=== PATIENT | female | born 1985 | race Caucasian/White ===

== ENCOUNTER 2017-05-01 19:34 | Emergency (ER) | payer SELFPAY ==
[~2017-05-01] VITALS: Ht 149.9 cm; Wt 54.4 kg
--- NOTE | 2017-05-01 19:55 | NUR ---
PT AMBULATORY TO ER BED 10 C/O EPIGASTRIC PAIN W/ NAUSEA AND VOMITING BLOOD TINGED. PT APPEARS ANXIOUS STAFF RADIATION THERAPIST AND TOOK ATIVAN BUT STATES MADE HER FEEL MUCH WORST. GOWNED AND PLACED ON MONITOR. VSS. AWAITING MD MARIE.
--- NOTE | 2017-05-01 20:12 | NUR ---
DR ANDINO AT BEDSIDE FOR EVAL.
--- NOTE | 2017-05-01 20:18 | NUR ---
IV LINE STARTED BLOOD DRAWN AND SEN TO LAB.
[2017-05-01] MEDS ORDERED: ONDANSETRON HCL/PF 4 MG/2 ML VIAL ONE (20:20)
[2017-05-01] MEDS ORDERED: IV NS 0.9% 1,000 ML ONE (20:20)
[2017-05-01] MEDS ORDERED: PANTOPRAZOLE 40 MG VIAL ONE (20:20)
[2017-05-01] MEDS ORDERED: IV SET PRIMARY 1 EA INFUS.SET MC ONE (20:20)
[2017-05-01 20:25] LABS: BASOPHILS % (AUTO) 0.3 % (0.0-2.0); EOSINOPHILS # (AUTO) 0.2 /CMM (0.0-0.7); EOSINOPHILS % (AUTO) 3.1 % (0.0-6.0); HEMATOCRIT 43 % (33-45); HEMOGLOBIN 13.9 g/dL (11.5-14.8); LYMPHOCYTES # (AUTO) 1.8 /CMM (0.8-4.8); LYMPHOCYTES % (AUTO) 23.5 % (20.0-44.0); MEAN CORPUSCULAR HEMOGLOBIN 30 PG (26.0-33.0); MEAN CORPUSCULAR HGB CONC 33 g/dl (31.0-36.0); MEAN CORPUSCULAR VOLUME 92 fL (82-100); MONOCYTES # (AUTO) 0.7 /CMM (0.1-1.30); MONOCYTES % (AUTO) 9.5 % (2.0-12.0); NEUTROPHILS # (AUTO) 4.8 /CMM (1.8-8.9); NEUTROPHILS % (AUTO) 63.6 % (43.0-81.0); PLATELET COUNT (AUTO) 289 /CMM (150-450); RDW COEFFICIENT OF VARIATION 11.9 (11.5-15.0); RED BLOOD CELL COUNT(AUTO) 4.64 MIL/uL (4.0-5.2); WHITE BLOOD COUNT (AUTO) 7.5 K/uL (4.3-11.0)
[2017-05-01 20:28] LABS: APPEARANCE,URINE Clear (CLEAR); BILIRUBIN,URINE SMALL (NEGATIVE); BLOOD, URINE Negative Ery/uL (NEGATIVE); COLOR,URINE Yellow (YELLOW); KETONES,URINE 15 (NEGATIVE); LEUKOCYTE ESTERASE ,URINE Negative (NEGATIVE); NITRITE, URINE Negative (NEGATIVE); PROTEIN,URINE >=300 mg/dl (NEGATIVE); UGLUCOSE Negative (NEGATIVE)
[2017-05-01 20:30] LABS: PREGNANCY TEST URINE QUAL NEGATIVE (NEGATIVE)
[2017-05-01] MEDS ORDERED: ONDANSETRON HCL/PF 4 MG/2 ML VIAL IVP ONE (20:30)
[2017-05-01] MEDS ORDERED: IV NS 0.9% 1,000 ML BAG IV ONE (20:30)
[2017-05-01] MEDS ORDERED: PANTOPRAZOLE 40 MG VIAL IV ONE (20:30)
[2017-05-01 20:31] LABS: PH,URINE >8.5 (5.0-8.0)
[2017-05-01 20:35] LABS: CREATININE 0.7 mg/dL (0.6-1.3); POTASSIUM 3.3 mmol/L (3.5-5.1)
[2017-05-01 20:38] LABS: RBC,URINE 0-2 /HPF (0-2); WBC,URINE 0-2 /HPF (0-3)
[2017-05-01 20:39] LABS: BACTERIA,URINE 1+ /HPF (None Seen); SQUAMOUS EPITHELIAL CELL,UR Few /HPF (None Seen)
[2017-05-01 20:39] LABS: INR 0.97 (0.87-1.13); PROTHROMBIN TIME 10.1 SECS (9.5-12.7)
[2017-05-01 20:41] LABS: ALBUMIN 4.2 g/dL (3.4-5.0); BILIRUBIN,DIRECT 0.1 mg/dL (0.0-0.2); BILIRUBIN,TOTAL 0.6 mg/dL (0.2-1.0); TOTAL PROTEIN, SERUM 8.1 g/dL (6.4-8.2)
--- NOTE | 2017-05-01 22:04 | NUR ---
Patient discharged to home in stable condition. Written and verbal after care instructions given. Patient verbalizes understanding of instruction.IV removed. Catheter intact and site benign. Pressure and 4x4 applied to site. No bleeding noted.
[2017-05-01 22:05] VITALS: BP 125/66
== END 2017-05-01 22:05 | disposition home or self-care (01) ==
LOC: ER 19:36
DX: K29.70 Gastritis, unspecified, without bleeding (principal); F41.0 Panic disorder [episodic paroxysmal anxiety]
CPT/HCPCS: 36415; 80048; 80076; 81001; 83690; 84703; 85025; 85730; 96374; 96375; 99284; A4606; C9113; J2405; J7030; Z7610; 81000-TC

== ENCOUNTER 2018-11-12 13:40 | Emergency (ER) | END 2018-11-12 15:42 | disposition home or self-care (01) | DX: J32.9 Chronic sinusitis, unspecified (principal); R05 Cough; K21.9 Gastro-esophageal reflux disease without esophagitis ==

== ENCOUNTER 2021-08-16 00:13 | Emergency (ER) | payer MEDICAID, OTHER ==
[~2021-08-16] VITALS: Ht 152.4 cm; Wt 69.9 kg
[2021-08-16] MEDS ORDERED: IV NS 0.9% 1,000 ML BAG IV ONE (00:30)
--- NOTE | 2021-08-16 00:32 | NUR ---
GRAHAM [phone] CALL FOR INFORMATION ASSURANCE ANALYST
--- NOTE | 2021-08-16 00:40 | NUR ---
PT BIBRA 77 C/O ETOH. PT NOT AROUSABLE. UNRESPONSSIVE TO STIMULI. UNLABORED BREATHING.
--- NOTE | 2021-08-16 01:00 | NUR ---
URINE COLLECTED AND SENT TO LAB
--- NOTE | 2021-08-16 01:02 | NUR ---
LEAD PASTOR @ BEDSIDE
[2021-08-16 01:08] LABS: BASOPHILS % (AUTO) 0.2 % (0.0-2.0); HEMATOCRIT 40 % (33-45); HEMOGLOBIN 12.9 g/dL (11.5-14.8); LYMPHOCYTES # (AUTO) 2.4 K/uL (0.8-4.8); LYMPHOCYTES % (AUTO) 37.1 % (20.0-44.0); MEAN CORPUSCULAR HGB CONC 32 g/dl (31.0-36.0); MEAN CORPUSCULAR VOLUME 98 fL (82-100); MONOCYTES # (AUTO) 0.7 K/uL (0.1-1.30); MONOCYTES % (AUTO) 11.4 % (2.0-12.0); NEUTROPHILS # (AUTO) 3.1 K/uL (1.8-8.9); NEUTROPHILS % (AUTO) 48.3 % (43.0-81.0); PLATELET COUNT (AUTO) 183 K/uL (150-450); RED BLOOD CELL COUNT(AUTO) 4.05 MIL/uL (4.0-5.2); WHITE BLOOD COUNT (AUTO) 6.5 K/uL (4.3-11.0)
[2021-08-16 01:43] LABS: ALANINE AMINOTRANSFERASE 23 U/L (12-78); ALBUMIN 3.7 g/dL (3.4-5.0); ALCOHOL, BLOOD 502 mg/dL (0-0); ALKALINE PHOSPHATASE 49 U/L (46-116); ASPARTATE AMINOTRANSFERASE 22 U/L (15-37); BILIRUBIN,DIRECT 0.1 mg/dL (0.0-0.2); BILIRUBIN,TOTAL 0.3 mg/dL (0.2-1.0); CALCIUM, SERUM 7.4 mg/dL (8.5-10.1); CARBON DIOXIDE 22 mmol/L (21-32); CHLORIDE 112 mmol/L (98-107); CREATININE 0.9 mg/dL (0.6-1.3); GLUCOSE 95 mg/dL (74-106); POTASSIUM 3.6 mmol/L (3.5-5.1); SODIUM SERUM 145 mmol/L (136-145); TOTAL PROTEIN, SERUM 7.5 g/dL (6.4-8.2); UREA NITROGEN, BLOOD 6 mg/dL (7-18)
[2021-08-16 01:45] LABS: ACETAMINOPHEN < 2 ug/ml (10-30)
[2021-08-16 02:05] LABS: BILIRUBIN,URINE NEGATIVE (NEGATIVE); LEUKOCYTE ESTERASE ,URINE NEGATIVE (NEGATIVE); NITRITE, URINE NEGATIVE (NEGATIVE); PROTEIN,URINE NEGATIVE (NEGATIVE); UGLUCOSE NEGATIVE (NEGATIVE); UROBILINOGEN,URINE 0.2 EU/dL (0.2)
[2021-08-16 02:12] LABS: COLOR,URINE STRAW (YELLOW)
[2021-08-16 02:16] LABS: BACTERIA,URINE None seen /HPF (None Seen); RBC,URINE 0-2 /HPF (0-2); SQUAMOUS EPITHELIAL CELL,UR Few /HPF (None Seen); WBC,URINE 0-2 /HPF (0-3)
--- NOTE | 2021-08-16 06:30 | NUR ---
ALEXANDER COUSIN, CALL FOR [employer] STUDIES DIRECTOR
--- NOTE | 2021-08-16 07:21 | NUR ---
PT OK TO BE DISCHARGED HOME PER DR PRADO. Patient is awake and alert to self, day, and place. PT ambulatory with a steady gait IV removed. Catheter intact and site benign. Pressure and 4x4 applied to site. No bleeding noted.Patient discharged to home in stable condition. Written and verbal after care instructions given. Patient verbalizes understanding of instruction. Pt cousin at bedside to drive pt home.
[2021-08-16 07:24] VITALS: BP 118/69
== END 2021-08-16 07:25 | disposition home or self-care (01) ==
LOC: ER 00:16
DX: F10.121 Alcohol abuse with intoxication delirium (principal); R94.31 Abnormal electrocardiogram [ECG] [EKG]; Y90.8 Blood alcohol level of 240 mg/100 ml or more
CPT/HCPCS: 36415; 70450; 72125; 80048; 80076; 80143; 80307; 80320; 81001; 84703; 85025; 93005; 96360; 99285; J7030; G0480

== ENCOUNTER 2025-05-24 22:17 | Emergency (ER) | payer OTHER ==
[~2025-05-24] VITALS: Ht 144.8 cm; Wt 54.9 kg
[2025-05-24] MEDS ORDERED: MECLIZINE HCL 25 MG TABLET ONE (23:28)
[2025-05-24] MEDS ORDERED: ONDANSETRON HCL/PF 4 MG/2 ML VIAL ONE (23:28)
[2025-05-24] MEDS: MECLIZINE HCL 25 MG TABLET PO ONE (23:34)
[2025-05-24] MEDS: ONDANSETRON HCL/PF 4 MG/2 ML VIAL IVP ONE (23:34)
[2025-05-24] MEDS: IV NS 0.9% 1,000 ML BAG IV ONE (23:34)
[2025-05-24 23:44] LABS: PLATELET COUNT (AUTO) 327 K/uL (150-450); RED BLOOD CELL COUNT(AUTO) 4.08 MIL/uL (4.0-5.2); RED CELL DISTRIBUTION WIDTH 15.8 % (11.5-15.0); WHITE BLOOD COUNT (AUTO) 6.6 K/uL (4.3-11.0)
[2025-05-24 23:46] LABS: APPEARANCE,URINE CLEAR (CLEAR); BLOOD, URINE NEGATIVE Ery/uL (NEGATIVE); LEUKOCYTE ESTERASE ,URINE NEGATIVE (NEGATIVE); NITRITE, URINE NEGATIVE (NEGATIVE); UGLUCOSE NEGATIVE (NEGATIVE)
[2025-05-24 23:52] LABS: PREGNANCY TEST URINE QUAL NEGATIVE (NEGATIVE)
[2025-05-24 23:57] LABS: INR 0.95 (0.91-1.10)
[2025-05-25] MEDS ORDERED: MECL-159 PO (00:27)
[2025-05-25 00:29] LABS: CREATININE 0.5 mg/dL (0.6-1.3); TOTAL PROTEIN, SERUM 7.7 g/dL (6.4-8.2)
[2025-05-25 00:30] LABS: ASPARTATE AMINOTRANSFERASE 24.0 U/L (15-37); CALCIUM, SERUM 9.1 mg/dL (8.5-10.1)
[2025-05-25 01:12] LABS: SODIUM SERUM 139.0 mmol/L (136-145); UREA NITROGEN, BLOOD 10.0 mg/dL (7-18)
[2025-05-25 01:28] VITALS: BP 122/74; TEMP 98.3; O2SAT 98
== END 2025-05-25 01:29 | disposition home or self-care (01) ==
LOC: ER 22:30
DX: R42 Dizziness and giddiness (principal); Z86.73 Personal history of transient ischemic attack (TIA), and cerebral infarction without residual deficits; Z60.2 Problems related to living alone; Z86.2 Personal history of diseases of the blood and blood-forming organs and certain disorders involving the immune mechanism
CPT/HCPCS: 99285; 96374; 70450; 71045; 96361; 93005; 85025; 80048; 80076; 84703; 81003; 36415; 85730; J8597; J2405